=== PATIENT | male | born 1990 | race Caucasian/White ===

== ENCOUNTER 2016-10-19 01:03 | Emergency (ER) | payer BC ==
[~2016-10-19 01:03] MED LIST: BACITAB3 PO; NO HOME MEDS; cleocin PO
== END 2016-10-19 05:08 | disposition left against medical advice (07) ==
LOC: M ED 01:03
DX: K08.89 Other specified disorders of teeth and supporting structures (principal); Z53.29 Procedure and treatment not carried out because of patient's decision for other reasons

== ENCOUNTER → 2017-03-17 | Outpatient (CLI) | payer MEDICAID, OTHER ==
[~2017-03-17] MED LIST changes: +BACITAB PO; -BACITAB3 PO
== END ==
LOC: M OUTALCOH 11:46
PROVIDERS: ATTEND Psychiatry & Neurology Psychiatry
DX: Z13.9 Encounter for screening, unspecified (principal); F10.10 Alcohol abuse, uncomplicated

== ENCOUNTER 2017-03-29 11:04 | Outpatient (RCR) | payer OTHER | END 2017-04-05 | LOC: M OUTALCOH 11:04 | PROVIDERS: ATTEND Psychiatry & Neurology Psychiatry | DX: F10.10 Alcohol abuse, uncomplicated (principal) ==

== ENCOUNTER → 2018-04-27 | Outpatient (CLI) | payer OTHER | LOC: M OUTALCOH 10:32 | DX: Z03.89 Encounter for observation for other suspected diseases and conditions ruled out (principal) ==

== ENCOUNTER 2022-02-06 09:48 | Emergency (ER) | payer OTHER ==
[~2022-02-06] VITALS: Ht 180.3 cm; Wt 106.8 kg
[2022-02-06 09:48] VITALS: BP 168/100
[2022-02-06 12:54] LABS: BASO # 0.1 10^3/uL (0.0-0.2); BASO % 0.7 % (0.0-1.0); EOS # 0.3 10^3/uL (0.0-0.5); EOS % 2.1 % (0.0-3.0); HEMATOCRIT 47.5 % (42.0-52.0); LYMPH # 3.7 10^3/uL (1.5-5.0); LYMPH % 31.1 % (24.0-44.0); MEAN CORPUSCULAR HEMOGLOBIN 30.2 pg (27.0-33.0); MEAN CORPUSCULAR HGB CONC 33.7 g/dl (32.0-36.5); MEAN CORPUSCULAR VOLUME 89.6 fl (80.0-96.0); MONO # 0.8 10^3/uL (0.0-0.8); MONO % 6.5 % (2.0-8.0); NEUTROPHILS # 7.1 10^3/uL (1.5-8.5); NEUTROPHILS % 59.3 % (36.0-66.0); PLATELET COUNT, AUTOMATED 277 10^3/uL (150-450); WHITE BLOOD COUNT 11.9 10^3/uL (4.0-10.0)
[2022-02-06 13:14] LABS: BLOOD UREA NITROGEN 16 MG/DL (7-18); CALCIUM LEVEL 9.3 MG/DL (8.5-10.1); CARBON DIOXIDE LEVEL 28 MEQ/L (21-32); CHLORIDE LEVEL 107 MEQ/L (98-107); CREATININE FOR GFR 0.96 MG/DL (0.70-1.30); GLOMERULAR FILTRATION RATE > 60.0 (>60); GLUCOSE, FASTING 84 MG/DL (70-100); POTASSIUM SERUM 4.2 MEQ/L (3.5-5.1); SODIUM LEVEL 141 MEQ/L (136-145)
[2022-02-06 13:23] LABS: ERYTHROCYTE SEDIMENTATION RATE 21 mm/hr (0-15)
[2022-02-06] MEDS ORDERED: CEPHALEXIN 500 MG CAP PO ONE (14:00)
[2022-02-06] MEDS ORDERED: CIPROFLOXACIN 500MG TABLET PO ONE (14:00)
[2022-02-06] MEDS ORDERED: CIPR-249 PO (14:05)
[2022-02-06] MEDS ORDERED: CEPH500C PO (14:05)
== END 2022-02-06 14:16 | disposition home or self-care (01) ==
LOC: M ED 09:48
DX: S91.332A Puncture wound without foreign body, left foot, initial encounter (principal); L03.116 Cellulitis of left lower limb; W45.0XXA Nail entering through skin, initial encounter; Y92.89 Other specified places as the place of occurrence of the external cause; Y93.9 Activity, unspecified; Y99.0 Civilian activity done for income or pay; Z79.899 Other long term (current) drug therapy; Z88.2 Allergy status to sulfonamides